=== PATIENT | male | born 2000 | race Caucasian/White ===

== ENCOUNTER 2024-11-14 14:41 | Emergency (ER) | payer OTHER, SELFPAY ==
[2024-11-14 14:54] VITALS: BP 121/81; PULSE 60; RESP 16; TEMP 36.3; O2SAT 100
--- NOTE | 2024-11-14 17:17 | ED.WOUNDLAC ---
HPI - Wound/Laceration General Chief Complaint: Wound/Laceration <Annalise Garcia APRN - Last Filed: 11/14/24 19:53> Stated Complaint: cut on eyelid <Annalise Garcia APRN - Last Filed: 11/14/24 19:53> Time Seen by Provider: 11/14/24 17:00 <Annalise Garcia APRN - Last Filed: 11/14/24 19:53> History of Present Illness HPI narrative: Patient is a 24-year-old male who presents to the ER after a cat scratched his left lower eyelid. He denies any pain in the eyeball, visual changes, or eyelid swelling. Patient is unsure when he had his last tetanus shot. He denies any other pertinent medical history related to this ER visit. <Annalise Garcia APRN - Last Filed: 11/14/24 19:53> Related Data Allergies/Adverse Reactions: Allergies Allergy/AdvReac Type Severity Reaction Status Date / Time No Known Allergies Allergy Verified 11/14/24 14:57 <Annalise Garcia APRN - Last Filed: 11/14/24 19:53> Review of Systems Review of Systems: All systems reviewed & are unremarkable except as noted in HPI and below <Annalise Garcia APRN - Last Filed: 11/14/24 19:53> Exam Narrative: GENERAL: Well appearing, well-nourished, non-toxic, in no acute distress. HEAD: Normocephalic, PERRLA both eyes, 1mm linear laceration medial lower eyelid, bleeding controlled NECK: Supple. No adenopathy, no masses. RESPIRATORY: Airway patent, respirations nonlabored. Clear to auscultation bilaterally, no rales, rhonchi, wheezing. CARDIOVASCULAR: Regular rate and rhythm without murmurs, rubs, or gallops. Peripheral pulses 2+ and equal bilaterally. ABDOMINAL: Soft, nontender, nondistended, no hepatosplenomegaly. Normoactive BS. MUSCULOSKELETAL: Moves all extremities. Strength/ROM intact without gross deformities. SKIN: Warm, dry, normal color. No rashes. NEURO: A&O X3. Speech clear. Cranial nerves II-XII intact. No ataxic movements. PSYCHIATRIC: Appropriate mood and affect. Normal interaction. <Annalise Garcia, SUPERVISOR [employer] - Last Filed: 11/14/24 19:53> Course VALANCE CUTTER/PA Physician Supervision For this patient encounter, I reviewed the VALANCE CUTTER or PA documentation, treatment plan, and medical decision making; and I had [id number] time with this patient. <Koeb Caruso MD - Last Filed: 11/15/24 21:18> Vital Signs Vital signs: Vital Signs Temperature 97.3 F L 11/14/24 14:54 Pulse Rate 60 11/14/24 14:54 Respiratory Rate 16 11/14/24 14:54 Blood Pressure 121/81 11/14/24 14:54 Pulse Oximetry 100 11/14/24 14:54 Oxygen Delivery Room Air 11/14/24 14:54 Temperature 97.3 F L 11/14/24 14:54 Pulse Rate 60 11/14/24 14:54 Respiratory Rate 16 11/14/24 14:54 Blood Pressure 121/81 11/14/24 14:54 Pulse Oximetry 100 11/14/24 14:54 Oxygen Delivery Room Air 11/14/24 14:54 <Annalise Garcia SUPERVISOR [employer] - Last Filed: 11/14/24 19:53> Vital Signs Temperature 97.3 F L 11/14/24 14:54 Pulse Rate 60 11/14/24 14:54 Respiratory Rate 16 11/14/24 14:54 Blood Pressure 121/81 11/14/24 14:54 Pulse Oximetry 100 11/14/24 14:54 Oxygen Delivery Room Air 11/14/24 14:54 Temperature 97.3 F L 11/14/24 14:54 Pulse Rate 60 11/14/24 14:54 Respiratory Rate 16 11/14/24 14:54 Blood Pressure 121/81 11/14/24 14:54 Pulse Oximetry 100 11/14/24 14:54 Oxygen Delivery Room Air 11/14/24 14:54 <Kobe Caruso MD - Last Filed: 11/15/24 21:18> MDM - Wound/Laceration MDM Narrative Medical decision making narrative: Patient is a 24-year-old male who presents to the ER after a cat scratched his left lower eyelid. He denies any pain in the eyeball, visual changes, or eyelid swelling. Patient is unsure when he had his last tetanus shot. He denies any other pertinent medical history related to this ER visit. Tetracaine and fluorescein were placed in patient's L eye. A Wood's lamp was used to assess pt's eye. No scratches, foreign objects, or injury was noted to patient's eye ball. 0- Spoke with ophthalmology at [facility] who advised pt be transferred to the ER for eyelid repair. 1929- Pt and his girlfriend verbalize understanding and are in agreement with plan. They will travel to [facility] via private vehicle. Pt understands the ER staff and ophthalmology are expecting him. <Annalise Garcia APRN - Last Filed: 11/14/24 19:53> Differential Diagnosis Differential diagnosis: Likely laceration and abrasion <Annalise Garcia APRN - Last Filed: 11/14/24 19:53> Discharge Plan Discharge Clinical Impression: Laceration <Annalise Garcia APRN - Last Filed: 11/14/24 19:53> Patient Disposition: Acute Care Hospital <Annalise Garcia APRN - Last Filed: 11/14/24 19:53> Condition: Stable <Annalise Garcia APRN - Last Filed: 11/14/24 19:53> Patient Language: Pakistani <Annalise Garcia APRN - Last Filed: 11/14/24 19:53> Follow-up/Referrals: PHYSICIAN,CLERK TELEVISION PRODUCTION [Primary Care Provider] - <Annalise Garcia APRN - Last Filed: 11/14/24 19:53>
--- OUTSIDE RECORDS SUMMARY | 2024-11-14 17:34 | XMS_ITS | Encounter Summary ---
Author Organization [facility] Address [address] [place] [address] Phone Care Team Providers Care Hospital Receiving Clerk Name Role Phone Pauline Rey MD Primary Care Provider + Encounter Details Date Type Department Care Team (Latest Contact Info) Description 06/16/2024 Orders Only [facility] [place] [address] [facility] [address] [place] [id number] Aris Perdomo MD [address] [address] Crohn's disease of small and large intestines with complication ([facility]) (Primary Dx) Social History Tobacco Use Types Packs/Day Years Used Date Smoking Tobacco: Never Smokeless Tobacco: Never Alcohol Use Standard Drinks/Week Comments Not Currently 0 (1 standard drink = 0.6 oz pur e alcohol) Sex and Gender Information Value Date Recorded Sex Assigned at Not on file Legal Sex Male 11:21 AM CDT Gender Identity Not on file Sexual Orientation Not on file documented as of this encounter Plan of Treatment Upcoming Encounters Date Type Department Care Team (Latest Contact Info) Description 11/22/2024 2:20 PM CDT Office Visit [facility] [place] [address] [facility] [address] [place] [address] [phone] Sury Acosta APRN [address] [place] [address] [place] [address] 12/27/2024 2:00 PM CDT Clinical Support [facility] [place] [address] [place] [address] documented as of this encounter Results * C-REACTIVE PROTEIN (06/25/2024 1:05 PM SECURITY SUPERVISOR) Pathologist [facility] C-REACTIVE PROTEIN <0.3 0.0 - 0.3 mg/dL 06/25/2024 8:[address] [facility] Comment:Performed at [facility], [address] [place] [address], ([phone], unless otherwise noted. 06/25/2024 1:05 PM SECURITY SUPERVISOR 06/25/2024 7:27 PM SECURITY SUPERVISOR Aris Perdomo MD HEM/CHEM/IMMUN-BLOOD Final Result [facility] [address] [place] [address], * (ABNORMAL) COMPREHENSIVE METABOLIC PANEL (06/25/2024 1:05 PM SECURITY SUPERVISOR) [facility] SODIUM 139 136 - 145 mmol/L 06/25/2024 8:03 PM [facility] POTASSIUM 4.5 3.5 - 5.1 mmol/L 06/25/2024 8:03 PM [facility] CHLORIDE 108(H) 98 - 107 mmol/L 06/25/2024 8:03 PM [facility] CO2 27 21 - 32 mmol/L 06/25/2024 8:03 PM [facility] GLUCOSE 80 74 - 99 mg/dL 06/25/2024 8:03 PM [facility] BUN 11 7 - 18 mg/dL 06/25/2024 8:03 PM [facility] CREATININE 0.86 0.70 - 1.30 mg/dL 06/25/2024 8:03 PM [facility] CALCIUM 9.7 8.3 - 10.3 mg/dL 06/25/2024 8:03 PM [facility] TOTAL PROTEIN 7.5 6.4 - 8.3 g/dL 06/25/2024 8:03 PM [facility] ALBUMIN 4.4 3.4 - 5.0 g/dL 06/25/2024 8:03 PM [facility] BILIRUBIN, TOTAL 0.3 0.2 - 1.0 mg/dL 06/25/2024 8:03 PM [facility] ALKALINE PHOSPHATASE 63 45 - 117 U/L 06/25/2024 8:03 PM [facility] AST 13(L) 15 - 37 U/L 06/25/2024 8:03 PM [facility] ALT 23 16 - 61 U/L 06/25/2024 8:03 PM [facility] ANION GAP 4 4 - 10 mmol/L 06/25/2024 8:03 PM [facility] BUN / CREAT RATIO 12.8 06/25/2024 8:03 PM [facility] OSMOLALITY CALCULATED 286 275 - 295 mosm/kg 06/25/2024 8:03 PM [facility] GLOBULIN 3.1 g/dL 06/25/2024 8:03 PM [facility] A/G RATIO 1.4 06/25/2024 8:03 PM [facility] GFR: CKD-EPI 2020 CREAT >90 >60 mL/min/[1. 73_m2] 06/25/2024 8:03 PM [facility] Comment:Performed at [facility], [address] [place] [address], ([phone], unless otherwise noted. 06/25/2024 1:05 PM SECURITY SUPERVISOR 06/25/2024 7:27 PM SECURITY SUPERVISOR Aris Perdomo MD HEM/CHEM/IMMUN-BLOOD Final Result [facility] [address] [place] [address], [place] [phone] * CBC W/DIFF (06/25/2024 1:05 PM SECURITY SUPERVISOR) WBC 5.57 3.87 - 9.10 10*3/uL 06/25/2024 7:32 PM [facility] RBC 4.82 4.33 - 5.44 10*6/uL 06/25/2024 7:32 PM [facility] HGB 14.7 13.4 - 16.1 g/dL 06/25/2024 7:32 PM [facility] HCT 43.9 40.1 - 49.2 % 06/25/2024 7:32 PM [facility] MCV 91.1 82.0 - 99.0 fL 06/25/2024 7:32 PM [facility] MCH 30.5 28.5 - 32.1 pg 06/25/2024 7:32 PM [facility] MCHC 33.5 31.4 - 34.5 g/dL 06/25/2024 7:32 PM [facility] PLATELET 234 150 - 400 10*3/uL 06/25/2024 7:32 PM [facility] RDW 12.0 11.4 - 14.0 % 06/25/2024 7:32 PM [facility] # NRBC 0.00 0 10*3/uL 06/25/2024 7:32 PM [facility] MPV 9.9 8.8 - 12.2 fL 06/25/2024 7:32 PM [facility] DIFFERENTIAL TYPE AUTOMATED DIFFERENTIAL 06/25/2024 7:32 PM [facility] SEG 41.9 % 06/25/2024 7:32 PM [facility] ABSOLUTE NEUTR 2.33 1.57 - 6.01 10*3/uL 06/25/2024 7:32 PM [facility] LYMPHOCYTE 43.1 % 06/25/2024 7:32 PM [facility] ABSOLUTE LYMPH 2.40 0.92 - 2.93 10*3/uL 06/25/2024 7:[address] [facility] MONOCYTE 11.8 % 06/25/2024 7:[address] [facility] ABSOLUTE MONO 0.66 0.26 - 0.87 10*3/uL 06/25/2024 7:[address] [facility] EOSINOPHIL 2.5 % 06/25/2024 7:[address] [facility] ABSOLUTE EOS 0.14 0.00 - 0.35 10*3/uL 06/25/2024 7:[address] [facility] BASOPHIL 0.5 % 06/25/2024 7:32 PM [facility] ABSOLUTE BASO 0.03 0.01 - 0.09 10*3/uL 06/25/2024 7:[address] [facility] IMMATURE GRANULOCYTE 0.2 % 06/25/2024 7:32 PM [facility] ABSOLUTE IMMATURE GRANULOCYTE 0.01 0.00 - 0.05 10*3/uL 06/25/2024 7:32 PM [facility] Comment:Performed at [facility], [address] [place] [address], ([phone], unless otherwise noted. 06/25/2024 1:05 PM SECURITY SUPERVISOR 06/25/2024 7:27 PM SECURITY SUPERVISOR Aris Perdomo MD HEM/CHEM/IMMUN-BLOOD Final Result [facility] [address] [place] [address], documented in this encounter Visit Diagnoses Diagnosis Crohn's disease of small and large intestines with complication (CMS-HCC)- Primary documented in this encounter Care Teams Hospital Receiving Clerk Relationship Specialty Start Date End Date Pauline Rey MD PCP - General Pediatrics(General) 03/04/24 documented as of this encounter
--- OUTSIDE RECORDS SUMMARY | 2024-11-14 17:34 | XMS_ITS | Encounter Summary ---
Author Organization [facility] Address [address] [place] [address] Phone Care Team Providers Care Car Checker Name Role Phone Young Ramirez MD Unavailable + Janey Lala APRN, BISTRO ATTENDANT Unavailable Unavailable Paolo Lomeli MD Unavailable Young Ramesh MD Primary Care Provid er Encounter Details Date Type Department Care Team (Late st Contact Info) Description 12/26/2021 Telephone [facility] - Gastroenterology [address] [place] [address] Paolo Lomeli MD [address] [place] [address] Social History Tobacco Use Types Packs/Day Years Used Date Smoking Tobacco: Never Smokeless Tobacco: Never Alcohol Use Standard Drinks/Week Comments No 0 (1 standard drink = 0.6 oz pur e alcohol) PHQ-2 Answer Date Recorded Total Score - Questions 1-9 0 01/19 Sex and Gender Information Value Date Recorded Sex Assigned at Not on file Legal Sex Male 3:12 AM SUMMER ASSOCIATE Gender Identity Not on file Sexual Orientation Not on file documented as of this encounter Miscellaneous Notes * Telephone Encounter - Ebony Zayas RN - 12/26/2021 1:52 PM CDT GI RN noticed pt has upcoming apt on 01/01. Per notes, pt was transferring care to [facility]. GI RN contacted father and confirmed they now go to [facility]. Apt cancelled. documented in this encounter Plan of Treatment Not on file documented as of this encounter Goals Goal Patient Goal Type Associated Problems Recent Progress Patient-Stated? Author I want to maintain my weight Targets On track( 021 2:43 PM CDT) Yes Mikala Gomez RN Note: Goal Reviewed with: patient Readiness to change: Ready to change Department associated with goal: [facility] Steps to achieve goal: 1. Eat healthy 2. Come to all [facility] appointments 3. Work out regularly documented as of this encounter Visit Diagnoses Not on filedocumented in this encounter Additional Health Concerns Assessment Noted Time PHQ-9 Depression Total Score: 0 02/09/20 3:00 PM CDT documented as of this encounter Care Teams Car Checker Relationship Specialty Start Date End Date Young Ramesh MD [address] [place] [address] [place] [address] PCP - General Pediatrics 08/14/21 Young Ramirez MD Consulting Physician Pediatric Gastroenterology 03/19/11 Janey Lala APRN, NAVEEN Nurse Practitioner Pediatrics 04/12/16 Paolo Lomeli MD [address] [phone] Consulting Physician Pediatric Gastroenterology 01/26/21 documented as of this encounter
--- OUTSIDE RECORDS SUMMARY | 2024-11-14 17:34 | XMS_ITS | Encounter Summary ---
Author Organization [facility] Address [address] [place] [address] Care Team Providers Care Special Education Superintendent Name Role Phone Unknown, Notinfile Primary Care Provider Unavail able Reason for Visit * Reason Comments Abrasion Patient here for c/o cat scratch under eye Encounter Details Date Type Department Care Team (Late st Contact Info) Description 11/14/2024 2:15 PM CDT Office Visit [facility] at [address] [address] Lisset Handy PA [address] [place] [address] [address] [place] [address] Left eyelid laceration, initial encounter (Primary Dx) Social History Tobacco Use Types Packs/Day Years Used Date Smoking Tobacco: Never Assessed Sex and Gender Information Value Date Recorded Sex Assigned at Not on file Legal Sex Male 8:50 PM CLINICAL TEAM MANAGER Gender Identity Not on file Sexual Orientation Not on file documented as of this encounter Last Filed Vital Signs Vital Sign Reading Time Taken Comments Blood Pressure 122/87 11/14/2024 2:17 PM CDT Pulse 57 11/14/2024 2:17 PM CDT Temperature 36.3 C (97.4 F) 11/14/2024 2:17 PM CDT Respiratory Rate 20 11/14/2024 2:17 PM CDT Oxygen Saturation 97% 11/14/2024 2:17 PM CDT Inhaled Oxygen Concentration - - Weight 81.6 kg (180 lb) 11/14/2024 2:17 PM CDT Height 182.9 cm (6') 11/14/2024 2:17 PM CDT Body Mass Index 24.41 11/14/2024 2:17 PM CDT documented in this encounter Progress Notes * Lisset Handy PA - 11/14/2024 2:15 PM CDT Images from the original note were not included. Subjective/Objective Patient ID: Keshav Moreno is a 24 y.o. male. 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 States he recently got a new cat that he was picking up and the cat tried to get away, striking himunder his L eye. States it bled quite a bit but has recently slowed down. Had tearing and blurred vision initially but that has since resolved. Mild pain, not severe. Review of Systems All systems reviewed and are negative or non contributory for this patient's presentation today other than as stated in the HPI . Physical Exam Constitutional: General: He is not in acute distress. HENT: Head: Normocephalic and atraumatic. Mouth/Throat: Pharynx: Oropharynx is clear. Eyes: Pupils: Pupils are equal, round, and reactive to light. Cardiovascular: Rate and Rhythm: Normal rate. Pulmonary: Effort: Pulmonary effort is normal. Musculoskeletal: General: Normal range of motion. Cervical back: Normal range of motion. Skin: General: Skin is warm and dry. Comments: Laceration noted to L lower conjunctiva - see photo Neurological: General: No focal deficit present. Mental Status: He is alert and oriented to person, place, and time. Psychiatric: Mood and Affect: Mood normal. Behavior: Behavior normal. Vitals: 11/14/24 1417 BP: 122/87 Pulse: 57 Resp: 20 Temp: 36.3 ??C (97.4 ??F) SpO2: 97% Weight: 81.6 kg (180 lb) Height: 182.9 cm (6') Assessment/Plan -laceration of L lower eyelid sustained from cat scratch, out of scope for repair in convenient care setting, referred to ED for further evaluation and management, possible specialist consultation Diagnoses and all orders for this visit: Left eyelid laceration, initial encounter (Primary) No results found for this or any previous visit (from the past 4 hours). Disposition Treatment plan including expectations, follow up, and return precautions discussed with patient/parent, verbalizes understanding. Medication dosage, use, and potential adverse reactions discussed with patient/parent. Advised to follow up with PCP if symptoms do not resolve as expected or sooner if condition worsens. Signs/symptoms warranting ER evaluation reviewed. Patient and/or guardian was given an opportunity to ask questions, questions answered. RIGOBERTO Potter 11/14/24 2:31 PM documented in this encounter Plan of Treatment Not on file documented as of this encounter Visit Diagnoses Diagnosis Left eyelid laceration, initial encounter- Primary documented in this encounter Care Teams Special Education Superintendent Relationship Specialty Start Date End Date Unknown, Notinfile PCP - General 11/14/24 documented as of this encounter
--- OUTSIDE RECORDS SUMMARY | 2024-11-14 17:34 | XMS_ITS | Clinical Summary ---
Author Organization [facility] Address [address] [place] [address] Care Team Providers Care Wallpaper Inspector Name Role Phone Young Ramirez MD Unavailable + Janey Lala APRN, FLATTENING MACHINE OPERATOR Unavailable Unavailable Paolo Lomeli MD Unavailable Young Ramesh MD Primary Care Provid er Allergies Active Allergy Reactions Criticality Noted Date Comments Other Runny Nose 03/15/2014 Seasonal allergies Medications InFLIXimab (REMICADE IV)Indications: will get 10/03/20 5 mg/kg by Intravenous route. Every 8 weeks Indications: will get 10/03/20 Active Active Problems Problem Noted Date Diagnosed Date Long-term use of infliximab 03/31/2020 Crohn's disease 10/03/2011 Overview (03/04/2018): Diagnosed: 10/03/2011 Primary curriculum director: Ashley Turner Classification: (Crohn's) Age at diagnosis: A1a: 0-<10 years Location: L3: Ileocolonic Behavior: B3: Penetrating P: Perianal disease modifier Growth: G0: No evidence of growth delay EGD/ Colonoscopy: 10/03/2011 Impression: Not on file Small bowel imaging: none Impression: TPMT Phenotype: 10/03/2011 Normal activity Hepatitis B Surface antigen: Not done Immunizations Immunization Administration Dates Next Due DTAP VACCINE 02/02/2008, 4,2002,2002,2002 HEP B/HIB Combined Vaccine 06/07/2003,2002 ,2002 Inactivated Polio Vaccine 02/02/2008,,2002,2002 Influenza Vaccine, Quadrivalent, PF 09/28/2018 MMR Vaccine 02/02/2008,09/06/2003 Meningococcal Group B OMV 02/08/2021 Meningococcal MCV4O 02/09/2020,02/21/2017 Pneumococcal Vaccine Peds - 7 Valent 2002, 2002,2002 TB Skin Test 05/18/2021,12/27/2019,07/12/2019 TDAP Vaccine 03/30/2019,02/18/2014 Varicella Vaccine Live 02/02/2008,06/07/2003 Family History Relation Name Status Comments Brother Alive Father Alive Mother Alive Social History Tobacco Use Types Packs/Day Years Used Date Smoking Tobacco: Never Smokeless Tobacco: Never Alcohol Use Standard Drinks/Week Comments No 0 (1 standard drink = 0.6 oz pur e alcohol) PHQ-2 Answer Date Recorded Total Score - Questions 1-9 0 01/19 Sex and Gender Information Value Date Recorded Sex Assigned at Not on file Legal Sex Male 3:12 AM CONTROL TOWER RADIO OPERATOR Gender Identity Not on file Sexual Orientation Not on file Last Filed Vital Signs Vital Sign Reading Time Taken Comments Blood Pressure 113/64 09/07/2021 3:00 PM CONTROL TOWER RADIO OPERATOR Pulse 59 09/07/2021 3:00 PM CONTROL TOWER RADIO OPERATOR Temperature 36.7 C (98 F) 09/07/2021 2:39 PM CONTROL TOWER RADIO OPERATOR Respiratory Rate 16 09/07/2021 3:00 PM CONTROL TOWER RADIO OPERATOR Oxygen Saturation 100% 09/07/2021 3:00 PM CONTROL TOWER RADIO OPERATOR Inhaled Oxygen Concentration - - Weight 70.8 kg (156 lb) 09/07/2021 2:40 PM CONTROL TOWER RADIO OPERATOR Height 182.9 cm (6') 09/07/2021 2:40 PM CONTROL TOWER RADIO OPERATOR Body Mass Index 21.16 09/07/2021 2:40 PM CONTROL TOWER RADIO OPERATOR Plan of Treatment Health Maintenance Due Date Last Done Comments Hepatitis C Virus (HCV) Screening 2002 Human Papillomavirus (HPV) Immunization (1 - Male 3-dose series) 2017 Meningococcal B Immunization (2 of 2 - Bexsero SCDM 2-dose series) 08/11/2021 02/08/2021 Influenza Immunization (#1) 2024 09/28/2018 SARS-COV-2 Immunization (2023-25 season) 2024 DTaP/Tdap/Td Immunization (8 - Td or Tdap) 03/30/2029 03/30/2019, 02/18/2014, 02/02/2008, Additional history exists Respiratory Syncytial Virus (RSV) Immunization (Adult) (1 - 1-dose 75+ series) 2077 Pneumococcal Immunization Combined Aged Out 2002, 2002, 2002 No longer eligible based on patient's age to complete this topic Hepatitis B Immunization Completed 003, 2002, 2002 Measles Mumps Rubella (MMR) Immunization Discontinued 02/02/2008, 09/06/2003 Polio (IPV) Immunization Discontinued 008, 09/06/2003, 2002, Additional history exists Varicella Immunization Discontinued 02/02/2008, 2002 Meningococcal Immunization (ACWY) Completed 02/09/2020, 02/21/2017 Rotavirus Immunization Aged Out No lo nger eligible based on patient's age to complete this topic Goals Goal Patient Goal Type Associated Problems Recent Progress Patient-Stated? Author I want to maintain my weight Targets On track( 021 2:43 PM CDT) Yes Mikala Gomez, RN Note: Goal Reviewed with: patient Readiness to change: Ready to change Department associated with goal: [facility] [place] Steps to achieve goal: 1. Eat healthy 2. Come to all Remicade appointments 3. Work out regularly Insurance [facility] Care Teams Wallpaper Inspector Relationship Specialty Start Date End Date Young Ramesh MD [address] [place] [address] [place] [address] PCP - General Pediatrics 08/14/21 Young Ramirez MD Consulting Physician Pediatric Gastroenterology 03/19/11 Janey Lala APRN, FLATTENING MACHINE OPERATOR Nurse Practitioner Pediatrics 04/12/16 Paolo Lomeli MD [address] [facility] [address] [place] [address] Consulting Physician Pediatric Gastroenterology 01/26/21
--- OUTSIDE RECORDS SUMMARY | 2024-11-14 17:34 | XMS_ITS | Continuity of Care Document ---
Author Organization [facility] Address [address] [place] [address] [address] [place] [address] Phone Care Team Providers Care Broadcast Traffic Coordinator Name Role Phone Neil PT, JASMINET, Nate Unavailable Unavailable Procedures Procedure Date Therapeutic Activities Neuromuscular Re-Ed Therapeutic Exercise Therapeutic Activities Neuromuscular Re-Ed Therapeutic Exercise Therapeutic Activities Neuromuscular Re-Ed Therapeutic Exercise Neuromuscular Re-Ed Therapeutic Activities Therapeutic Exercise Therapeutic Activities Neuromuscular Re-Ed Therapeutic Activities Neuromuscular Re-Ed Neuromuscular Re-Ed Therapeutic Activities Therapeutic Activities PT Evaluation Moderate Complexity Neuromuscular Re-Ed Therapeutic Activities Progress Note Neuromuscular Re-Ed Therapeutic Exercise Therapeutic Activities Neuromuscular Re-Ed Therapeutic Exercise Therapeutic Activities Neuromuscular Re-Ed Therapeutic Exercise Therapeutic Activities Neuromuscular Re-Ed Therapeutic Exercise Therapeutic Activities Therapeutic Exercise Neuromuscular Re-Ed Therapeutic Activities Neuromuscular Re-Ed Manual Therapy Therapeutic Activities Neuromuscular Re-Ed Manual Therapy Therapeutic Activities Manual Therapy Neuromuscular Re-Ed PT Evaluation Low Complexity Neuromuscular Re-Ed Therapeutic Exercise Therapeutic Activities Electrical Stimulation Advance Directives Directive Yes / No Effective Date File Name No Information Encounters Encounter Description Practice Location Reason(s) For Visit Diagnoses Date Provider Providers Copied on Encounter [facility] [facility] [address], [place], [place], [id number], tel:[phone] [place] No Information 2 Neil Sullivan. . [facility], [place], [place], [id number], [place] tel:[phone] [place] No Information 2 Neil Sullivan. . Referring Provider: Access Direct. [facility] [facility] [address], [place], [place], [id number], tel:[phone] [place] No Information Mar- 2 Neil Sullivan. . Referring Provider: Access Direct. [facility], [place], [place], [address], [place] tel:[phone] [place] No Information Mar-2 2 Neil Sullivan. . Referring Provider: Access Direct. [facility] [facility] [address], [place], [place], [id number], tel:[phone] [place] No Information Mar- 2 Modglin Shaw. . Referring Provider: Access Direct. [facility] [facility] [address], [place], [place], [id number], [place] tel:[phone] [place] No Information Sep-0 - 2 Carmine Santiago [place], [place]. Referring Provider: Access Direct. [facility] [facility] [address], [place], [place], [id number], [place] tel:[phone] [place] No Information Sep-0 6- 2 Neil Sullivan. . Referring Provider: Access Direct. [facility] [facility] [address], [place], [place], [address], [place] tel:[phone] [place] No Information Sep-0 - 2 Neil Sullivan. . Referring Provider: Access Direct. [facility] [facility] [address], [place], [place], [address], tel:[phone] [place] No Information Aug-3 0- 2 Neil Sullivan. . Referring Provider: Access Direct. [facility] [facility] [address], [place], [place], [address], [place] tel:[phone] [place] No Information May-0 5- 2 Neil Sullivan. . [facility] [facility] [address], [place], [place], [address], [place] tel:[phone] [place] No Information May-0 3- 2 Neil Sullivan. . [facility] [facility] [address], [place], [place], [address], [place] tel:[phone] [place] No Information Apr-2 2 Neil Sullivan. . [facility] [facility] [address], [place], [address], [place] tel:[phone] [place] No Information Apr-2 2 Neil Sullivan. . [facility] [facility] [address], [place], [place], [address], [place] tel:[phone] [place] No Information Apr-2 - 2 Neil Sullivan. . [facility] [facility] [address], [place], [place], [address], tel:[phone] [place] No Information 2 Neil Sullivan. . [facility], [place], [place], [address], tel:[phone] [place] No Information 2 Neil Sullivan. . [facility], [place], [place], [address], tel:[phone] [place] No Information 2 Neil Sullivan. . [facility] [facility], [place], [place], [id number], tel:[phone] [place] No Information 2 Avery Cheema. . Family History Family Member Type Diagnosis Age At Onset No Information Payers Payer name Insurance type Covered green party ID Mike gonzalez(s) [place] [employer] [place] [id number] Social History Type Description Quantity Date Captured Comments Sex Male Smoking Status No Information Chief Complaint And Reason For Visit No Information Reason For Referral Reason For Referral No Information History Of Present Illness Encounter Date Complaint History Of Prese nt Illness No Information Functional Status Date Functional Assessmen t No Information Instructions Date Instruction Additional Infor mation No Information Assessments Type Assessment Date No Information Patient Care Teams Name Effective Dates (start - stop) Status Members No Information
--- OUTSIDE RECORDS SUMMARY | 2024-11-14 17:34 | XMS_ITS | Encounter Summary ---
Author Organization [facility] Address [address] [place] [address] Phone Care Team Providers Care Wink Cutter Operator Name Role Phone Pauline Rey MD Primary Care Provider + Reason for Visit * Reason Onset Date Comments Insurance Prior Authorization 11/12/2024 Encounter Details Date Type Department Care Team (Latest Contact Info) Description 11/12/2024 Telephone [facility] Gastroenterology [place] [address] [id number] Aris Perdomo MD [address] [facility] [address], [place] [address] Insurance Prior Authorization Social History Tobacco Use Types Packs/Day Years [...] encounter Miscellaneous Notes * Telephone Encounter - Erika Kumari RN - 11/12/2024 9:54 AM CDT Called patient and left message asking he call back with updated insurance and have entered. * Telephone Encounter - Yudi Truong CMA - 11/12/2024 8:03 AM CDT PT has current Tx plan for Remicade PT insurance is showing Elapsed Please verify current coverage so PA can be determined Please route back to ONCO PRIOR AUTH CHEMO/RADIATION documented in this encounter Plan of Treatment Upcoming Encounters Date Type Department Care Team (Latest Contact Info) Description 11/22/2024 2:20 PM CDT Office Visit [facility] Gastroenterology [place] [address] [place], [place] [address] Sury Acosta APRN [address] [place], [place] [address] 12/27/2024 2:00 PM CDT Clinical Support [facility] Infusion [place] [address] [place] [address] documented as of this encounter Visit Diagnoses Not on filedocumented in this encounter Care Teams Wink Cutter Operator Relationship Specialty Start Date End Date Pauline Rey MD PCP - General Pediatrics(General) 03/04/24 documented as of this encounter
--- OUTSIDE RECORDS SUMMARY | 2024-11-14 17:34 | XMS_ITS | Clinical Summary ---
Author Organization [address] [address] Care Team Providers Care Monogram Technician Name Role Phone Unknown, Notinfile Primary Care Provider Unavail able Allergies Active Allergy Reactions Criticality Noted Date Comments Other Rhinitis Low 03/15/2014 Seasonal allergies Medications No known medications Active Problems Problem Noted Date Diagnosed Date Crohn's disease of small and large intestines with complication 10/21/2023 Long-term use of infliximab 03/31/2020 Crohn's disease 10/03/2011 Overview (11/14/2024): Diagnosed: 10/03/2011 Primary sales and merchandising representative: Ashley Turner Classification: (Crohn's) Age at diagnosis: A1a: 0-<10 years Location: L3: Ileocolonic Behavior: B3: Penetrating P: Perianal disease modifier Growth: G0: No evidence of growth delay EGD/ Colonoscopy: 10/03/2011 Impression: Not on file Small bowel imaging: none Impression: TPMT Phenotype: 10/03/2011 Normal activity Hepatitis B Surface antigen: Not done Encounters Date Type Department Care Team Description 11/14/2024 2:15 PM CDT Office Visit [facility] at [address] [address] Lisset Handy PA Left eyelid laceration, initial encounter (Primary Dx) from Last 3 Months Social History Tobacco Use Types Packs/Day Years Used Date Smoking Tobacco: Never Assessed Sex and Gender Information Value Date Recorded Sex Assigned at Not on file Legal Sex Male 8:50 PM LEGAL BILLING ANALYST Gender Identity Not on file Sexual Orientation Not on file Obstetrics History Last Filed Vital Signs Vital Sign Reading [...] Mass Index 24.41 11/14/2024 2:17 PM CDT Plan of Treatment Health Maintenance Due Date Last Done Comments Depression Screening 2002 Hepatitis C Screening 2002 HPV Vaccines (1 - Male 3-dose series) 2017 Regular Well Visit/Exam 18-64 2020 Meningococcal B Vaccine (2 of 2 - Bexsero SCDM 2-dose series) 08/11/2021 02/08/2021 Influenza Vaccine (Season Ended) 2025 09/28/2018 DTaP/Tdap/Td Vaccine (8 - Td or Tdap) 03/30/2029 03/30/2019, 02/18/2014, 02/02/2008, Additional history exists Pneumococcal vaccine <65 Aged Out 003, 2002, 2002 No longer eligible based on patient's age to complete this topic Hepatitis B Screening Completed 06/07/2003 , 2002, 2002 Varicella Vaccines Completed 02/02/2008, 06/07/2003 Insurance [employer] Care Teams Monogram Technician Relationship Specialty Start Date End Date Unknown, Notinfile PCP - General 11/14/24
--- OUTSIDE RECORDS SUMMARY | 2024-11-14 17:34 | XMS_ITS | Referral Summary ---
Author Organization [address] [address] Care Team Providers Care Respooler Name Role Phone Unknown, Notinfile Primary Care Provider Unavail able Encounters Date Type Department Care Team Description 11/14/2024 2:15 PM CDT Office Visit [facility]ient Care at [address] [address] Lisset Handy PA Left eyelid laceration, initial encounter (Primary Dx) from Last 3 Months Allergies Active Allergy Reactions Criticality Noted Date Comments Other Rhinitis Low 03/15/2014 Seasonal allergies Medications No known medications Active Problems Problem Noted Date Diagnosed Date Crohn's disease of small and large intestines with complication 10/21/2023 Long-term use of infliximab 03/31/2020 Crohn's disease 10/03/2011 Overview (11/14/2024): Diagnosed: 10/03/2011 Primary satellite tv technician: Ashley Turner Classification: (Crohn's) Age at diagnosis: A1a: 0-<10 years Location: L3: Ileocolonic Behavior: B3: Penetrating P: Perianal disease modifier Growth: G0: No evidence of growth delay EGD/ Colonoscopy: 10/03/2011 Impression: Not on file Small bowel imaging: none Impression: TPMT Phenotype: 10/03/2011 Normal activity Hepatitis B Surface antigen: Not done Social History Tobacco Use Types Packs/Day Years Used Date Smoking Tobacco: Never Assessed Sex and Gender Information Value Date Recorded Sex Assigned at Not on file Legal Sex Male 8:50 PM LOG WASHER Gender Identity Not on file Sexual Orientation [...] 11/14/2024 2:17 PM CDT Plan of Treatment Not on file Insurance [employer] Care Teams Respooler Relationship Specialty Start Date End Date Unknown, Notinfile PCP - General 11/14/24
--- OUTSIDE RECORDS SUMMARY | 2024-11-14 17:34 | XMS_ITS | Encounter Summary ---
Author Organization [facility] Address [address] [place] [address] Phone Care Team Providers Care Cut Roll Machine Operator Name Role Phone Young Ramirez MD Unavailable + Pauline Rey MD Primary Care Provider + Janey Lala APRN, UNIT TRUST MANAGER Unavailable Unavailable Paolo Lomeli MD Unavailable Young Ramesh MD Primary Care Provid er Encounter Details Date Type Department Care Team (Late st Contact Info) Description 07/12/2021 Telephone [facility] Gastroenterology [address] [place] [address] Paolo Lomeli MD [address] [place] [address] Social History Tobacco Use Types Packs/Day Years Used Date Smoking Tobacco: Never Smokeless Tobacco: Never Alcohol Use Standard Drinks/Week Comments No 0 (1 standard drink = 0.6 oz pur e alcohol) PHQ-2 Answer Date Recorded Total Score - Questions 1-9 0 01/19 Sex and Gender Information Value Date Recorded Sex Assigned at Not on file Legal Sex Male 3:12 AM IMPREGNATOR OPERATOR Gender Identity Not on file Sexual Orientation Not on file COVID-19 Exposure Response Date Recorded In the last month, have you been in contact with someone who was confirmed or suspected to have Coronavirus / COVID-19? No / Unsure 07/11/2021 1:51 PM IMPREGNATOR OPERATOR documented as of this encounter Miscellaneous Notes * Telephone Encounter - Jacqueline Hayden RN - 07/12/2021 9:29 AM CST GI RN sent mychart with results below. EGNATOR OPERATOR * Telephone Encounter - Jacqueline Hayden RN - 07/12/2021 9:18 AM CST ----- Message from Paolo Lomeli MD sent at 07/12/2021 8:30 AM IMPREGNATOR OPERATOR ----- Labs reviewed CRP 0.12 normal CBC normal hct 41 ESR 3 normal CMP normal albumin 4.7 EGNATOR OPERATOR documented in this encounter Plan of Treatment Not on file documented as of this encounter Goals Goal Patient Goal Type Associated Problems Recent Progress Patient-Stated? Author I want to maintain my weight Targets On track( 021 2:43 PM CDT) Yes Mikala Gomez RN Note: Goal Reviewed with: patient Readiness to change: Ready to change Department associated with goal: [facility] [place] Steps to achieve goal: 1. Eat healthy 2. Come to all Remicade appointments 3. Work out regularly documented as of this encounter Visit Diagnoses Not on filedocumented in this encounter Additional Health Concerns Assessment Noted Time PHQ-9 Depression Total Score: 0 02/09/20 21 3:00 PM CDT documented as of this encounter Care Teams Cut Roll Machine Operator Relationship Specialty Start Date End Date Pauline Rey MD PCP - General Pediatrics 11/17/15 08/13/21 Young Ramesh MD [address] [place] [address] [place] [address] PCP - General Pediatrics 08/14/21 Young Ramirez MD Consulting Physician Pediatric Gastroenterology 03/19/11 Janey Lala APRN, UNIT TRUST MANAGER Nurse Practitioner Pediatrics 04/12/16 Paolo Lomeli MD [address] [facility] [address] [place] [address] Consulting Physician Pediatric Gastroenterology 01/26/21 documented as of this encounter
--- OUTSIDE RECORDS SUMMARY | 2024-11-14 17:34 | XMS_ITS | Encounter Summary ---
Author Organization [facility] Address [address] [place] [address] Phone Care Team Providers Care Peoplesoft Hr Developer Name Role Phone Pauline Rey MD Primary Care Provider + Encounter Details Date Type Department Care Team (Late st Contact Info) Description 10/21/2023 Orders Only [facility] Infusion [address] [place] [phone] Nohelia Bach LPN Crohn's disease of small and large intestines with complication (Primary Dx) Social History Tobacco Use Types [...] Description 11/22/2024 2:20 PM CDT Office Visit [facility] Gastroenterology [place] [address], [place] [address] Sury Acosta APRN [address] [facility] [address] [place], [place] [id number] 12/27/2024 2:00 PM CDT Clinical Support [facility] Infusion [place] [address] [facility] [address] [place], [place] [address] documented as of this encounter Visit Diagnoses Diagnosis Crohn's disease of small and large intestines with complication (CMS-HCC)- Primary documented in this encounter Care Teams Peoplesoft Hr Developer Relationship Specialty Start Date End Date Pauline Rey MD PCP - General Pediatrics(General) 03/04/24 documented as of this encounter
--- OUTSIDE RECORDS SUMMARY | 2024-11-14 17:34 | XMS_ITS | Encounter Summary ---
Author Organization [facility] Address [address] [place] [address] Phone Care Team Providers Care Turf And Grounds Supervisor Name Role Phone Pauline Rey MD Primary Care Provider + Encounter Details Date Type Department Care Team (Late st Contact Info) Description 12/04/2023 Orders Only [address] [address] Ray Villeda RN Crohn's disease of small and large intestines [...] Description 11/22/2024 2:20 PM CDT Office Visit [facility] Gastroenterology [place] [address] [id number] Sury Acosta APRN [address] [address] 12/27/2024 2:00 PM CDT Clinical Support [facility] Infusion [place] [address] [phone] documented as of this encounter Visit Diagnoses Diagnosis Crohn's disease of small and large intestines with complication (CMS-HCC)- Primary documented in this encounter Care Teams Turf And Grounds Supervisor Relationship Specialty Start Date End Date Pauline Rey MD PCP - General Pediatrics(General) 03/04/24 documented as of this encounter
--- OUTSIDE RECORDS SUMMARY | 2024-11-14 17:34 | XMS_ITS | Encounter Summary ---
Author Organization [email or web address] [facility] Address [address] [place] [address] Phone Care Team Providers Care Molding Process Technician Name Role Phone Pauline Rey MD Primary Care Provider + Encounter Details Date Type Department Care Team (Late st Contact Info) Description 01/08/2024 Telephone [facility] [place] [address] [facility] [address] [place], [place] [phone] Aris Perdomo MD [address] [facility] [address] [place] [address] Social History Tobacco Use Types Packs/Day Years [...] encounter Miscellaneous Notes * Telephone Encounter - Ray Villeda RN - 01/08/2024 4:05 PM CDT Patient tolerated 2 hour remicade infusion very well today and would like to move to 1 hour infusions per [facility] protocol. Patient states he previously did 1 hour remicade infusions for multiple yearswith [facility]. Routed to [facility] for approval documented in this encounter Plan of Treatment Upcoming Encounters Date Type Department Care Team (Latest Contact Info) Description 11/22/2024 2:20 PM CDT Office Visit [facility] [place] [address] [facility] [address] [place], [place] [phone] Sury Acosta APRN [address] [facility] [address] [place] [address] 12/27/2024 2:00 PM CDT Clinical Support [facility] [place] [address] [facility] [address] [place], [place] [id number] documented as of this encounter Visit Diagnoses Not on filedocumented in this encounter Care Teams Molding Process Technician Relationship Specialty Start Date End Date Pauline Rey MD PCP - General Pediatrics(General) 03/04/24 documented as of this encounter
--- OUTSIDE RECORDS SUMMARY | 2024-11-14 17:34 | XMS_ITS | Encounter Summary ---
Author Organization [facility] Address [address] [place] [address] Phone Care Team Providers Care Life Cycle Assessment Analyst Name Role Phone Pauline Rey MD Primary Care Provider + Encounter Details Date Type Department Care Team (Latest Contact Info) Description 01/26/2024 Orders Only [facility] [place] [address] [place] [id number] Aris Perdomo MD [address] [phone] Crohn's disease of small and large intestines with complication Social History Tobacco Use Types Packs/Day Years [...] Description 11/22/2024 2:20 PM CDT Office Visit [facility] [place] [address], [place] [address] Sury Acosta APRN [address] [facility] [address], [place] [address] 12/27/2024 2:00 PM CDT Clinical Support [facility] [address] [address] documented as of this encounter Visit Diagnoses Diagnosis Crohn's disease of small and large intestines with complication (CMS-HCC) documented in this encounter Care Teams Life Cycle Assessment Analyst Relationship Specialty Start Date End Date Pauline Rey MD PCP - General Pediatrics(General) 03/04/24 documented as of this encounter
--- OUTSIDE RECORDS SUMMARY | 2024-11-14 17:34 | XMS_ITS | Clinical Summary ---
Author Organization [employer] [facility] Address [address] [place] [address] Phone Care Team Providers Care Promotions Producer Name Role Phone Pauline Rey MD Primary Care Provider + Allergies Active Allergy Reactions Criticality Noted Date Comments Other Rhinitis 03/15/2014 Seasonal allergies Medications * This document contains information received from the source organization and may not represent a complete record from that organization. naproxen (NAPROSYN) 125 mg/5 mL oral suspension 1 tablet. 10/28/2019 Active promethazine 25 mg tablet Take 1 (one) tablet by mouth every 6 (six) hours as needed for Nausea. 09/28/2021 Active Active Problems Problem Noted Date Diagnosed Date Crohn's disease of small and large intestines with complication 10/21/2023 Encounters Date Type Department Care Team Description 11/12/2024 Telephone [facility] [place] [address] [facility] [address], [place] [address] Aris Perdomo MD Insurance Prior Authorization 10/29/2024 2:00 PM CDT Clinical Support [facility] [place] [address] [facility] [address] [place] [address] Sury Acosta APRN 08/30/2024 2:00 PM TRAP OPERATOR Clinical Support [facility] [place] [address] [facility] [address] [place] [address] Aris Perdomo MD 08/26/2024 Telephone [facility] [place] [address] [address] Sury Acosta APRN Appointment Cancel/reschedule (Reschedule 08/26 infusion) 08/23/2024 Telephone [facility] [place] [address] [address] Sury Acosta BENDING PRESS OPERATOR Appointment Cancel/reschedule (Reschedule 08/23 Remicade) 08/17/2024 Telephone [facility] [place] [address] [address] Aris Perdomo MD Appointment Cancel/reschedule (Reschedule 08/19 Infusion) from Last 3 Months Family History Medical History Relation Name Comments OTHER Other 1 Diabetes mellit us - All Family: Noted on 2010-01-25 10:01:54 OTHER Other 2 Thyroid disorde r - All Family: Noted on 2010-01-25 10:01:54 Relation Name Status Comments Other 1 Other 2 Social History Tobacco Use Types Packs/Day Years [...] Sign Reading Time Taken Comments Blood Pressure 106/70 10/29/2024 4:10 PM CDT Pulse 62 10/29/2024 4:10 PM CDT Temperature 37 C (98.6 F) 10/29/2024 4:10 PM CDT Respiratory Rate 18 09/28/2021 12:3 0 PM TRAP OPERATOR Oxygen Saturation - - Inhaled Oxygen Concentration - - Weight 82.9 kg (182 lb 12.2 oz) 10/29/2024 2:22 PM CDT Height 180.3 cm (5' 11 ) 09/28/2021 6:32 AM TRAP OPERATOR Body Mass Index 25.49 09/28/2021 6:32 AM TRAP OPERATOR Plan of Treatment Upcoming Encounters Date Type Department Care Team (Latest Contact Info) Description 11/22/2024 2:20 PM CDT Office Visit [facility] [place] [address] [facility] [address] [place] [address] Sury Acosta APRN [address] [facility] [address] [place] [address] 12/27/2024 2:00 PM CDT Clinical Support [facility] [place] [address] [facility] [address] [place] [address] Health Maintenance Due Date Last Done Comments Depression Screening 2014 HPV Vaccines (1 - Male 3-dose series) 2017 Meningococcal B Vaccine (2 of 2 - Bexsero SCDM 2-dose series) 08/11/2021 02/08/2021 COVID-19 Vaccine (1 - season) 2024 Influenza Vaccine (Season Ended) 2025 09/28/2018 DTaP/Tdap/Td Vaccines (8 - Td or Tdap) 03/30/2029 03/30/2019, 02/18/2014, 02/02/2008, Additional history exists Pneumococcal Vaccines Aged Out 2002 , 2002, 2002 No longer eligible based on patient's age to complete this topic HIB Vaccines Completed 06/07/2003, 09/19, 2002 Hepatitis B Vaccines Completed 06/07/2003, 2002, 2002 IPV Vaccines Completed 02/02/2008, 08/21, 2002, Additional history exists MMR Vaccines Completed 02/02/2008, 09/06/2003 Varicella Vaccines Completed 02/02/2008, 06/07/2003 Meningococcal Vaccine (ACWY) Completed 02/09/2020, 02/21/2017 Hepatitis A Vaccines Aged Out No long er eligible based on patient's age to complete this topic Rotavirus Vaccines Aged Out No longer eligible based on patient's age to complete this topic Medical Devices Implanted Type Area Operations Vice President Device Identifier Shelf Expiration Date Model / Serial / Lot Grft Biocrtlg Exclr Mtrx 1ml - [id number] Implanted:Qty: 1 on 09/28/2021 by Frank Unger MD Right: Knee ARTHREX [id number] 01/11/2024 ABS-1010-BC / [id number] / [id number] Kit Tissl Fbrn Slnt Prima 2ml - [id number] Implanted:Qty: 1 on 09/28/2021 by Frank Unger MD Right: Knee BALDWIN [id number] 03/20/2023 [id number] / [id number] / [id number] Scr Bcmp Intfr F-Thrd 7x20mm - [id number] Implanted:Qty: 1 on 09/28/2021 by Frank Unger MD Right: Knee ARTHREX [id number] 05/20/2025 AR-4020C-07 / / [id number] Scr Bcmp Intfr F-Thrd 7x20mm - [id number] Implanted:Qty: 1 on 09/28/2021 by Frank Unger MD Right: Knee ARTHREX [id number] 05/20/2025 FL-4020C-07 / / [id number] Care Teams Promotions Producer Relationship Specialty Start Date End Date Pauline Rey MD PCP - General Pediatrics(General) 03/04/24
[2024-11-14] MEDS: FLUORESCEIN SOD 1 MG/STRIP EACH EYE (19:12)
[2024-11-14] MEDS: TETANUS,DIPHTHERIA,AC PERTUSSIS ADULT (0.5 ML) BOOSTRIX IM (19:12)
[2024-11-14] MEDS: TETRACAINE HCL 0.5% OPHTH SOLN 4 ML BTL 1 DROP EACH EYE (19:12)
--- NOTE | 2024-11-14 20:03 | PC.NURSE ---
saida called to HESHAM Tapia at [facility] ER. patient instructed to remain NPO and to go directly to [facility] ER by private car
== END 2024-11-14 20:09 | disposition short-term general hospital (02) ==
PROVIDERS: Emergency Provider Registered Nurse
DX: S01.112A Laceration without foreign body of left eyelid and periocular area, initial encounter (principal); Z23 Encounter for immunization; W55.03XA Scratched by cat, initial encounter
CPT/HCPCS: 90471; 90715; 99283